=== PATIENT | female | born 1935 | race Caucasian/White ===

== ENCOUNTER → 2024-05-24 10:52 | Outpatient (REF) | payer MEDICARE, SELFPAY | LOC: HWRCS 10:52 | PROVIDERS: ATTENDING PHYSICIAN Internal Medicine Cardiovascular Disease; FAMILY PHYSICIAN Family Medicine | DX: I50.32 Chronic diastolic (congestive) heart failure (principal); I07.1 Rheumatic tricuspid insufficiency; I27.20 Pulmonary hypertension, unspecified | CPT/HCPCS: 93306 ==

== ENCOUNTER 2024-09-02 14:52 | Emergency (ER) | payer MEDICARE, SELFPAY ==
[2024-09-02 14:56] VITALS: BP 114/85
--- NOTE | 2024-09-02 15:17 | ED.GENMED ---
History of Present Illness
General
Chief Complaint: Breathing Problem
Time Seen by Provider: 09/02/24 15:17
History of Present Illness
History of Present Illness:
TIME OF INITIAL ENCOUNTER:
HPI: Patient presents from urgent care. She has been having shortness of breath and coughing. She also has been having left-sided pleuritic pain. She was found to be wheezing and can sense her self wheezing when she was at urgent care. She was
sent here for further evaluation. She does not have a history of reactive airway disease/COPD/asthma. She was unaware of a diagnosis of pulmonary hypertension. She states that Dr. Caro decreased her Eliquis dosing from 5 mg twice daily to 2.5 mg
twice daily. She states that her weight has increased by about 6 pounds recently. She states that her legs and abdomen has been swelling recently. She is compliant with Lasix.
EXAM:
GENERAL: Well appearing in no distress
HEENT: Dry oral mucosa
CARDIOVASCULAR: No murmurs, normal heart rate, regular rhythm, No chest wall tenderness
PULMONARY: Slightly increased work of breathing, wheeze greater than Rales heard diffusely
ABDOMEN: Soft with no peritoneal signs, no tenderness
NEUROLOGIC: Excellent strength all extremities, no coordination deficits
PSYCHIATRIC: Appropriate mental status, normal insight and judgement
EXTREMITIES: Nontender, 2+ bilateral lower extremity edema, moves all extremities equally
SKIN: No rash, no lesions
NUMBER AND COMPLEXITY OF PROBLEMS ADDRESSED AT THE ENCOUNTER
� Chronic conditions affecting care: Severe pulmonary hypertension, CKD, permanent A-fib, high blood pressure
� Acute Exacerbation and/or Progression of Chronic Illness: This is an acute problem
� Differential Diagnosis includes: Worsening pulmonary hypertension, CHF, pneumonia, reactive airway disease, viral syndrome
AMOUNT AND/OR COMPLEXITY OF DATA TO BE REVIEWED AND ANALYZED
� I performed an independent evaluation of and my interpretation is:
EKG: A-fib 68, baseline artifact, nonspecific ST abnormality, no significant change from 01/09/2023
CT:
X-rays: I personally viewed chest x-ray and agree with radiologist interpretation that there is severe cardiomegaly along with some interstitial edema and small left pleural effusion
Laboratory Studies: BNP 2100, troponin less than 0.012, MCV elevated but otherwise CBC unremarkable, bicarb 31, creatinine 1.4 slightly higher than prior
Other:
� Review of other/old records: I reviewed records, the patient was seen here April 13 and kept in the hospital. At that time, she had a cath that showed right dominant circulation with no significant CAD and was found to have
moderate to severe pulmonary hypertension. Lasix was increased to 40 mg daily at that time. She is still on Eliquis.
� Clinical information was obtained by an independent historian: I spoke to daughter at bedside
� Prescriptions/Medications Considered but not given:
� Further testing considered but not performed:
RISK OF COMPLICATIONS AND/OR MORBIDITY OR MORTALITY OF PATIENT MANAGEMENT
� Social determinants of health affecting care: Lives at home
� Discussion with other providers: I discussed case with Dr. Reyna. She will ensure closer outpatient follow-up with Dr. Caro as she does not have ointment to see him until January.
� Escalation of care including admission/observation vs risk of discharge considered: Although the patient's room air sats are normal, she does have rather significant edema on exam along with wheeze on exam. She also has recent
6 pound weight gain.
ANY OTHER UPDATES:
IV Lasix given. I considered keeping the patient in the hospital however, the patient feels comfortable with going home. Room air sats are as high as 99% and she is in no respiratory distress.
Phy Exam
Physical Exam
Physical Exam:
See HPI
Scores
Heart Failure Risk
Heart Failure Risk Score: Not Applicable
Course
Orders/Labs/Results
Orders:
Orders
09/02/24 15:00
Electrocardiogram (*1) Urgent
Reason for Study: Shortness of Breath
CXR2 [CR Chest - 2 Views ] Urgent
Comment:
Reason For Exam: sob/coughing
09/02/24 15:01
EKG- Treatment ONCE
09/02/24 15:24
Complete Blood Count/With Diff Urgent
Comprehensive Metabolic Panel Urgent
NT-proBNP Urgent
Troponin I Urgent
09/02/24 15:56
COVID-19 Antigen Urgent
Source: Nasal Swab
Influenza A+B Rapid Molecular Urgent
AJAY Source: Nasal Swab
Specimen Description:
09/02/24 16:09
Furosemide [Lasix] 40 mg IV NOW STA
Abnormal Lab Results
09/02/24
15:24
Hct 47.7 H %
(37.0-47.0)
MCV 103.7 H fL
(81.0-99.0)
MCH 32.8 H pg
(27.0-31.0)
MCHC 31.7 L g/dL
(33.0-37.0)
Plt Count 128 L 10^3/uL
(130-400)
Absolute Lymphs (auto) 0.9 L 10^3/uL
(1.2-3.4)
Lymphocytes % 17.7 L %
(20.5-51.1)
Monocytes % 9.6 H %
(1.7-9.3)
Carbon Dioxide 31 H mmol/L
(22-30)
BUN 34 H mg/dl
(7-17)
Creatinine 1.4 H mg/dL
(0.6-1.0)
Total Bilirubin 2.2 H mg/dl
(0.2-1.3)
Alkaline Phosphatase 148 H U/L
(38-126)
09/02/24 15:24
09/02/24 15:24
Vital Signs
Initial and Last Documented VS:
Initial Vital Signs
Temp Pulse Resp BP Pulse Ox
36.9 C 79 16 114/85 99
09/02/24 14:56 09/02/24 14:56 09/02/24 14:56 09/02/24 14:56 09/02/24 14:56
Last Documented Vital Signs
Temp Pulse Resp BP Pulse Ox
36.9 C 76 22 114/77 97
09/02/24 14:56 09/02/24 17:00 09/02/24 17:00 09/02/24 16:35 09/02/24 16:30
*Critical Care Note
Total Time (30-74mins, 75-104mins- exclusive of procedures): Not Applicable
ED Attending Note
-
Portions of this chart may have been created with voice recognition software.� Occasional wrong word or��sound alike� substitutions may have occurred due to the inherent limitations of voice recognition software.
Discharge Plan
Departure
Patient Disposition: Home (Routine Discharge)
Date of Disposition: 09/02/24
Time of Disposition: 16:27
Patient with high blood pressure during this ER visit?: Yes
Discharge Problem:
Congestive heart failure
Instructions: *CBC Heart Failure Instructions
Prescriptions:
No Action
metoprolol tartrate 100 mg Tablet
100 mg PO BID
Eliquis 5 mg Tablet
5 mg PO BID
Balance Of Nature
6 tab PO DAILY
Morris Xl
2 tab PO BID
Prevagen
1 tab PO DAILY
furosemide 40 mg Tablet
40 mg PO DAILY Qty: 1 0RF
Activity Restrictions/Additional Instructions:
Chest x-ray does show 'severe cardiomegaly with interstitial edema and a small left pleural effusion'.I notified Dr. Caro's associate, Dr. Reyna. She states that their office will call you to arrange a follow-up with Dr. Booker salvador. BNP level
is 2100 which is consistent with heart failure. We gave you a one-time dose of Lasix 40 mg by IV which is in addition to your normal Lasix dosing. Return here if worse or other concerns.
Interventions
Interventions:
*Risk Screen - Suicide Last Done: 09/02/24 14:56
*General Assessment Last Done: 09/02/24 16:27
*Neglect/Abuse Screening Last Done: 09/02/24 14:56
*ED- Fall Risk Assessment Last Done: 09/02/24 16:27
*ED COVID-19 Vaccine History Last Done: 09/02/24 16:27
*Nursing Disposition Last Done: 09/02/24 17:19
ED- Cardiac Assessment Last Done: 09/02/24 16:27
ED- Pulmonary Assessment Last Done: 09/02/24 16:27
Discharge Date and Time
Print Language: CROATIAN
[2024-09-02 15:40] LABS: % Basophils 0.8 % (0-2); % Eosinophils 4.3 % (0-6); % Immature Granulocytes 0.4 % (0-0.5); % Lymphocytes 17.7 % (20.5-51.1); % Monocytes 9.6 % (1.7-9.3); % Neutrophils 67.2 % (42.2-75.2); Absolute Eosinophils 0.2 10^3/uL (0-0.7); Absolute Lymphocytes 0.9 10^3/uL (1.2-3.4); Absolute Monocytes 0.5 10^3/uL (0.1-0.6); Absolute Neutrophils 3.3 10^3/uL (1.4-6.5); Hematocrit 47.7 % (37.0-47.0); Hemoglobin 15.1 g/dL (12.0-16.0); Mean Corp Hgb Conc. 31.7 g/dL (33.0-37.0); Mean Corpuscular Hgb 32.8 pg (27.0-31.0); Mean Corpuscular Volume 103.7 fL (81.0-99.0); Mean Platelet Volume 10.4 fL (7.4-10.4); Nucleated Red Blood Cells % 0 %; Platelet Count 128 10^3/uL (130-400); Red Cell Dist. Width 13.8 % (11.5-14.5); White Blood Cell Count 4.9 10^3/uL (4.8-10.8)
[2024-09-02 15:51] LABS: ALT (SGPT) 22 U/L (0-35); AST (SGOT) 35 U/L (14-36); Albumin 4.9 g/dl (3.5-5.0); Alkaline Phosphatase 148 U/L (38-126); Blood Urea Nitrogen 34 mg/dl (7-17); Calcium 9.5 mg/dl (8.4-10.2); Carbon Dioxide 31 mmol/L (22-30); Chloride 100 mmol/L (98-107); Glucose 91 mg/dl (70-99); Potassium 3.9 mmol/L (3.5-5.1); Sodium 141 mmol/L (135-145); Total Bilirubin 2.2 mg/dl (0.2-1.3); Total Protein 7.3 g/dl (6.3-8.2); eGFR 36.41
[2024-09-02 15:55] VITALS: BP 112/83
[2024-09-02 16:00] VITALS: BP 114/77
[2024-09-02 16:02] LABS: NT-proBNP 2100 pg/ml; Troponin I < 0.012 ng/ml
[2024-09-02] MEDS: LASIX 40 MG IV (16:35)
[2024-09-02 16:47] LABS: COVID-19 Antigen Negative (Negative)
== END 2024-09-02 17:19 | disposition home or self-care (01) ==
LOC: EMR 14:52
PROVIDERS: Student in an Organized Health Care Education/Training Program; EMERGENCY PHYSICIAN Emergency Medicine
DX: I13.0 Hypertensive heart and chronic kidney disease with heart failure and stage 1 through stage 4 chronic kidney disease, or unspecified chronic kidney disease (principal); I50.9 Heart failure, unspecified; N18.9 Chronic kidney disease, unspecified; I27.20 Pulmonary hypertension, unspecified; I48.21 Permanent atrial fibrillation; Z79.01 Long term (current) use of anticoagulants; Z11.52 Encounter for screening for COVID-19
CPT/HCPCS: 96374; 99285; 71046; 80053; 83880; 84484; 85025; 87502; 87811; 93005

== ENCOUNTER → 2025-02-07 07:46 | Outpatient (REF) | payer MEDICARE, SELFPAY | LOC: WOUND 07:46 | PROVIDERS: ATTENDING PHYSICIAN Surgery; FAMILY PHYSICIAN Family Medicine | DX: L97.412 Non-pressure chronic ulcer of right heel and midfoot with fat layer exposed (principal); I73.9 Peripheral vascular disease, unspecified; I87.2 Venous insufficiency (chronic) (peripheral); M20.11 Hallux valgus (acquired), right foot; M21.611 Bunion of right foot; M77.31 Calcaneal spur, right foot | CPT/HCPCS: 11042; 73630; 99204 ==

== ENCOUNTER → 2025-02-14 09:07 | Outpatient (REF) | payer MEDICARE, SELFPAY | LOC: WOUND 09:07 | PROVIDERS: ATTENDING PHYSICIAN Surgery; FAMILY PHYSICIAN Family Medicine | DX: L97.412 Non-pressure chronic ulcer of right heel and midfoot with fat layer exposed (principal); I73.9 Peripheral vascular disease, unspecified; I87.2 Venous insufficiency (chronic) (peripheral); I48.21 Permanent atrial fibrillation; N18.32 Chronic kidney disease, stage 3b; I50.32 Chronic diastolic (congestive) heart failure; Z79.01 Long term (current) use of anticoagulants | CPT/HCPCS: 11042 ==

== ENCOUNTER → 2025-02-21 11:07 | Outpatient (REF) | payer MEDICARE, SELFPAY | LOC: WOUND 11:07 | PROVIDERS: ATTENDING PHYSICIAN Surgery; FAMILY PHYSICIAN Family Medicine | DX: L97.412 Non-pressure chronic ulcer of right heel and midfoot with fat layer exposed (principal); I73.9 Peripheral vascular disease, unspecified; I87.2 Venous insufficiency (chronic) (peripheral); I48.21 Permanent atrial fibrillation; N18.32 Chronic kidney disease, stage 3b; I50.32 Chronic diastolic (congestive) heart failure | CPT/HCPCS: 99212 ==

== ENCOUNTER → 2025-02-26 13:22 | Outpatient (REF) | payer MEDICARE, SELFPAY | LOC: RAD 13:22 | PROVIDERS: ATTENDING PHYSICIAN Surgery; FAMILY PHYSICIAN Family Medicine | DX: L97.412 Non-pressure chronic ulcer of right heel and midfoot with fat layer exposed (principal); I73.9 Peripheral vascular disease, unspecified; I87.2 Venous insufficiency (chronic) (peripheral) | CPT/HCPCS: 93922; 93971 ==

== ENCOUNTER → 2025-05-01 10:10 | Outpatient (REF) | payer MEDICARE, SELFPAY | LOC: HWRCS 10:10 | PROVIDERS: ATTENDING PHYSICIAN Internal Medicine Cardiovascular Disease; FAMILY PHYSICIAN Family Medicine | DX: I50.32 Chronic diastolic (congestive) heart failure (principal) | CPT/HCPCS: 93306 ==